=== PATIENT | male | born 1995 | race African-American/Black ===

== ENCOUNTER 2018-04-05 13:37 | Emergency (ER) | payer SELFPAY ==
[2018-04-05 14:44] LABS: Bilirubin Negative (Negative); Blood, Urine Trace (Negative); Clarity Clear (Clear); Glucose, Urine (Dipstick) Negative (Negative); Leukocyte Negative (Negative); Nitrite Negative (Negative); Protein, Urine (Dipstick) Negative (Neg-Trace); Specific Gravity, Urine 1.015 (1.005-1.030); pH, Urine 6.5 (5.0-9.0)
[2018-04-05 14:47] LABS: Bacteria/HPF Rare-Few HPF (None Seen); RBC/HPF 0-3 HPF (0-3); Squamous Epithelial 0-3 HPF (0-3)
[2018-04-05] MEDS ORDERED: metroNIDAZOLE 250 MG TAB ONE (15:00)
[2018-04-05] MEDS ORDERED: Lidocaine 1% 20 ML MDV ONE (15:00)
[2018-04-05] MEDS ORDERED: cefTRIAXone\\ROCEPHIN 250 MG VIAL ONE (15:00)
== END 2018-04-05 15:21 | disposition home or self-care (01) ==
LOC: MADERS 13:37
DX: A64 Unspecified sexually transmitted disease (principal); F17.210 Nicotine dependence, cigarettes, uncomplicated
CPT/HCPCS: 81001; 87086; 96372; J0696; J2001

== ENCOUNTER 2019-12-23 21:12 | Emergency (ER) | payer SELFPAY ==
[2019-12-23] MEDS ORDERED: Lidocaine 1% 20 ML MDV ONE (21:38)
[2019-12-23] MEDS ORDERED: Sulfameth/Trimethoprim DS 800-160mg TAB ONE (21:54)
== END 2019-12-23 22:14 | disposition home or self-care (01) ==
LOC: MADERS 21:12
DX: N49.2 Inflammatory disorders of scrotum (principal); F17.210 Nicotine dependence, cigarettes, uncomplicated
CPT/HCPCS: 54700; J2001

== ENCOUNTER 2019-12-26 19:54 | Emergency (ER) | payer SELFPAY | END 2019-12-26 20:54 | disposition left against medical advice (07) | LOC: MADERS 19:54 | DX: Z53.21 Procedure and treatment not carried out due to patient leaving prior to being seen by health care provider (principal) ==

== ENCOUNTER 2019-12-27 13:03 | Emergency (ER) | payer BC, SELFPAY | END 2019-12-27 14:11 | disposition home or self-care (01) | LOC: MADERS 13:03 | DX: Z48.817 Encounter for surgical aftercare following surgery on the skin and subcutaneous tissue (principal); F17.210 Nicotine dependence, cigarettes, uncomplicated | CPT/HCPCS: 99282 ==

== ENCOUNTER 2020-04-05 17:18 | Emergency (ER) | payer BC ==
[2020-04-05] MEDS ORDERED: Sodium Chloride 0.9% 1,000 ML ONE (17:51)
[2020-04-05] MEDS ORDERED: Ketorolac Tromethamine 30 MG/ML VIAL ONE (17:51)
[2020-04-05 17:52] LABS: #Basophils 0.1 thou/uL (0.0-0.2); #Lymphocytes 1.6 thou/uL (1.20-3.40); #Monocytes 1.2 thou/uL (0.11-0.59); #Neutrophils 7.4 thou/uL (1.40-6.50); %Basophils 0.7 % (0.0-1.0); %Eosinophils 0.4 % (0.0-10.0); %Lymphocytes 15.3 % (21.0-51.0); %Monocytes 11.5 % (0.0-10.0); %Neutrophils 72.1 % (42.0-75.0); Hemoglobin 13.5 g/dL (14.0-18.0); Mean Corpuscular HGB CONC 31.4 g/dL (32.0-36.0); Mean Corpuscular Hemoglobin 29.5 pg (27.0-31.0); Mean Corpuscular Volume 93.8 fL (78.0-98.0); Mean Platelet Volume 5.7 fL (7.4-10.4); Platelet Count 275 thou/uL (130-400); RBC Distribution Width 12.7 % (11.5-14.5); Red Blood Cell (RBC) Count 4.58 mill/uL (4.70-6.10); White Blood Cell (WBC) Count 10.2 thou/uL (4.8-10.8)
[2020-04-05 17:54] LABS: Bilirubin Negative (Negative); Blood, Urine Negative (Negative); Clarity Clear (Clear); Glucose, Urine (Dipstick) Negative (Negative); Leukocyte Negative (Negative); Nitrite Negative (Negative); Protein, Urine (Dipstick) Negative (Neg-Trace); Urobilinogen 0.2 mg/dL (Less than 2)
[2020-04-05 18:09] LABS: ALT (SGPT) 16 U/L (8-55); AST (SGOT) 14 U/L (5-34); Albumin 4.4 g/dL (3.5-5.0); Alkaline Phosphatase 56 U/L (40-110); Anion Gap 17 mmol/L (10-20); BUN (Urea Nitrogen) 17 mg/dL (8.9-20.6); Bilirubin, Total 0.5 mg/dL (0.2-1.2); Calc. Creatinine Clearance 0 mL/min (70-130); Calcium 9.7 mg/dL (7.8-10.44); Carbon Dioxide 24 mmol/L (22-29); Chloride 105 mmol/L (98-107); Estimated GFR-MDRD Greater than 90; Globulin 3.3 g/dL (2.4-3.5); Glucose 95 mg/dL (70-105); Potassium 3.7 mmol/L (3.5-5.1); Protein, Total 7.7 g/dL (6.0-8.3); Sodium 142 mmol/L (136-145)
[2020-04-05] MEDS ORDERED: Sodium Chloride 0.9% 100 ML ONE (18:18)
[2020-04-05] MEDS ORDERED: Piperacillin/Tazobactam 3.375 GM VIAL ONE (18:18)
--- NOTE | 2020-04-05 18:56 | CT ---
CTA ABDOMEN AND PELVIS WITHOUT CONTRAST: 04/05/20 HISTORY: Right lower quadrant abdominal pain. FINDINGS: Absence of oral and IV contrast reduces the sensitivity of the exam particularly for evaluation of so lid organs and bowel. The lung bases are clear. No free air, free fluid is seen in the abdomen or pel vis. No calcified gallstones are noted. No calculi is seen in the kidneys, ureters or the urinary bl adder. The appendix is dilated with thickening of the wall and small amount of periappendiceal inflammatory change. IMPRESSION: Findings are suspicious for acute appendicitis. Discussed over the telephone with the ER physician, Dr. Josh Ly at 6:10 p.m. POS: OFF
== END 2020-04-05 19:13 | disposition short-term general hospital (02) ==
LOC: MADERS 17:18
DX: K35.80 Unspecified acute appendicitis (principal); F17.210 Nicotine dependence, cigarettes, uncomplicated
CPT/HCPCS: 74176; 80053; 81003; 85025; 96365; 96375; J1885; J2543; J3490; J7050

== ENCOUNTER 2022-03-06 09:56 | Emergency (ER) | payer BC | END 2022-03-06 10:45 | disposition home or self-care (01) | LOC: MADERS 09:56 | DX: D24.2 Benign neoplasm of left breast (principal); L91.0 Hypertrophic scar; F17.210 Nicotine dependence, cigarettes, uncomplicated | CPT/HCPCS: 99282 ==

== ENCOUNTER 2022-10-16 15:13 | Emergency (ER) | payer BC, SELFPAY ==
[2022-10-16] MEDS ORDERED: AMOXicillin 250 MG CAP ONE (16:44)
[2022-10-16] MEDS ORDERED: Amoxicillin/Potassium Clav 875 MG TAB ONE (16:44)
== END 2022-10-16 16:45 | disposition home or self-care (01) ==
LOC: MADERS 15:13
DX: H66.91 Otitis media, unspecified, right ear (principal); I10 Essential (primary) hypertension; F17.210 Nicotine dependence, cigarettes, uncomplicated
CPT/HCPCS: 99282

== ENCOUNTER 2022-10-30 13:10 | Emergency (ER) | payer SELFPAY ==
[2022-10-30] MEDS ORDERED: Sodium Chloride 0.9% 1,000 ML ONE (13:41)
[2022-10-30] MEDS ORDERED: Ondansetron PF 4 MG/2 ML Vial ONE (13:41)
[2022-10-30 13:57] LABS: #Basophils 0.1 thou/uL (0.0-0.2); #Lymphocytes 0.8 thou/uL (1.20-3.40); #Monocytes 0.7 thou/uL (0.11-0.59); #Neutrophils 10.9 thou/uL (1.40-6.50); %Basophils 0.7 % (0.0-1.0); %Lymphocytes 6.5 % (21.0-51.0); %Monocytes 5.5 % (0.0-10.0); %Neutrophils 87.3 % (42.0-75.0); Hemoglobin 15.1 g/dL (14.0-18.0); Mean Corpuscular HGB CONC 32.4 g/dL (32.0-36.0); Mean Corpuscular Hemoglobin 30.3 pg (27.0-31.0); Mean Corpuscular Volume 93.5 fl (78.0-98.0); Mean Platelet Volume 5.3 fL (7.4-10.4); Platelet Count 282 10x3/uL (130-400); RBC Distribution Width 13.8 % (11.5-14.5); Red Blood Cell (RBC) Count 4.97 mill/uL (4.70-6.10); White Blood Cell (WBC) Count 12.5 10x3/uL (4.8-10.8)
[2022-10-30 14:16] LABS: ALT (SGPT) 7 U/L (8-55); AST (SGOT) 11 U/L (5-34); Albumin 4.4 g/dL (3.5-5.0); Alkaline Phosphatase 65 U/L (40-110); Anion Gap 15 mmol/L (10-20); BUN (Urea Nitrogen) 14 mg/dL (8.9-20.6); Bilirubin, Total 0.6 mg/dL (0.2-1.2); Calc. Creatinine Clearance 0 mL/min (70-130); Calcium 9.9 mg/dL (7.8-10.44); Carbon Dioxide 28 mmol/L (22-29); Chloride 102 mmol/L (98-107); Estimated GFR 96; Globulin 3.6 g/dL (2.4-3.5); Glucose 85 mg/dL (70-105); Lipase 14 U/L (8-78); Potassium 3.6 mmol/L (3.5-5.1); Sodium 141 mmol/L (136-145)
== END 2022-10-30 14:56 | disposition home or self-care (01) ==
LOC: MADERS 13:10
DX: A08.4 Viral intestinal infection, unspecified (principal); Z20.822 Contact with and (suspected) exposure to COVID-19; F17.210 Nicotine dependence, cigarettes, uncomplicated
CPT/HCPCS: 80053; 83690; 85025; 87804; 96361; 96374; J2405; J7050; U0003; U0005